=== PATIENT | male | born 1980 | race Caucasian/White ===

== ENCOUNTER 2017-02-18 17:13 | Emergency (ER) | payer OTHER ==
[~2017-02-18] VITALS: Ht 182.9 cm; Wt 88.9 kg
[2017-02-18 18:08] VITALS: BP 157/85
[2017-02-18] MEDS ORDERED: KETOROLAC 60 MG/2 ML VIAL IM ONE (18:20)
--- NOTE | 2017-02-18 18:34 | NUR ---
PATIENT BIB FAMILY FOR L EAR PAIN, TACTILE FEVER, L SHOULDER PAIN AND R FLANK/RIB PAIN WITH CANTOR AND BODY ACHES.DENIES N/V/D;PT HAS VESICLES NOTED ON LT RIB. SKIN IS PINK/WARM/DRY; AAOX4 WITH EVEN AND STEADY GAIT; LUNGS CLEAR BL; HR EVEN AND REGULAR; PT DENIES ANY CP, SOB, OR COUGH AT THIS TIME; PATIENT STATES PAIN OF 8/10 AT THIS TIME; PATIENT POSITIONED FOR COMFORT; HOB ELEVATED; BEDRAILS UP X2; BED DOWN. ER MD MADE AWARE OF PT STATUS.
[2017-02-18] MEDS ORDERED: HYDROcodone/APAP 5/325 MG 1 TAB TAB PO ONE (18:40)
[2017-02-18] MEDS ORDERED: DEXAMETHASONE 10 MG/ML VIAL IM ONE (18:40)
[2017-02-18] MEDS ORDERED: ONDANSETRON 4 MG ODT PO ONE (18:40)
[2017-02-18 19:29] VITALS: BP 142/81
--- NOTE | 2017-02-18 19:29 | NUR ---
Patient discharged with v/s stable. Written and verbal after care instructions given and explained. Patient alert, oriented and verbalized understanding of instructions. Ambulatory with steady gait. All questions addressed prior to discharge. ID band removed. Patient advised to follow up with PMD. Rx of ACYCLOVIR,MOTRIN,NORCO AND PREDNISONE given. Patient educated on indication of medication including possible reaction and side effects. Opportunity to ask questions provided and answered.
== END 2017-02-18 19:29 | disposition home or self-care (01) ==
LOC: MED 17:13
DX: B34.9 Viral infection, unspecified (principal)
CPT/HCPCS: 71045; 96372; 99284; J1100; J1885; Q0092; S0119

== ENCOUNTER 2017-03-11 14:51 | Emergency (ER) | payer OTHER ==
[~2017-03-11] VITALS: Ht 177.8 cm; Wt 88.9 kg
[2017-03-11 15:25] VITALS: BP 151/98
[2017-03-11] MEDS ORDERED: HYDROCODONE-ACETAMIN 5-325 MG (15:31)
--- NOTE | 2017-03-11 17:16 | NUR ---
PT AMBULATED TO ER BED 12
--- NOTE | 2017-03-11 19:12 | NUR ---
REPORT GIVEN TO [facility]
--- NOTE | 2017-03-11 19:15 | NUR ---
PT C/O PAIN TO LEFT SIDE S/P SHINGLES 3 WEEKS AGO. PT STATES HE HAS "RAN OUT OF MEDICATIONS" AND IS STILL HAVING PAIN 10/10 TO LEFT SIDE. PT STATES PAIN IS BURNING AND ITCHING , FEELS LIKE "ANTS". PT HAS SCARING TO LEFT SIDE OF CHEST, SKIN IS WARM, DRY, INTACT. NO PMH NKA
[2017-03-11] MEDS ORDERED: oxyCODONE/APAP 5/325 MG 1 TAB TAB PO ONE (21:00)
--- NOTE | 2017-03-11 21:37 | NUR ---
Patient discharged with v/s stable. Written and verbal after care instructions given and explained. Patient alert, oriented and verbalized understanding of instructions. Ambulatory with steady gait. All questions addressed prior to discharge. ID band removed. Patient advised to follow up with PMD. Rx of gabapentin, ibuprofen, norco given. Patient educated on indication of medication including possible reaction and side effects. Opportunity to ask questions provided and answered.
[2017-03-11 21:38] VITALS: BP 147/93
== END 2017-03-11 21:37 | disposition home or self-care (01) ==
LOC: MED 14:51
DX: B02.9 Zoster without complications (principal); Z79.899 Other long term (current) drug therapy
CPT/HCPCS: 81002; 99283

== ENCOUNTER 2022-07-11 19:36 | Emergency (ER) | payer OTHER ==
[~2022-07-11] VITALS: Ht 177.8 cm; Wt 88.5 kg
[~2022-07-11 19:36] MED LIST: HYDROCODONE-ACETAMIN 5-325 MG
[2022-07-11 19:56] VITALS: BP 144/110
--- NOTE | 2022-07-11 20:03 | NUR ---
PT TO BED #2
--- NOTE | 2022-07-11 22:05 | NUR ---
ER physician at bedside with patient.
--- NOTE | 2022-07-11 22:15 | NUR ---
Patient resting in bed, A/Ox4, chest rise and fall symmetrical, no s/s of distress, on monitor.
--- NOTE | 2022-07-11 23:00 | NUR ---
Patient resting in bed, A/Ox4, chest rise and fall symmetrical, no s/s of distress, on monitor.
[2022-07-11] MEDS ORDERED: LIDO15CR2 TP (23:06)
[2022-07-11] MEDS ORDERED: HYDR25SU91 RC (23:06)
[2022-07-11 23:35] VITALS: BP 115/74
== END 2022-07-11 23:50 | disposition home or self-care (01) ==
LOC: MED 19:36
DX: K62.5 Hemorrhage of anus and rectum (principal); K62.89 Other specified diseases of anus and rectum; I10 Essential (primary) hypertension; Z79.899 Other long term (current) drug therapy
CPT/HCPCS: 99282